=== PATIENT | female | born 1990 | race Two or more races ===

== ENCOUNTER 2018-07-29 09:32 | Emergency (ER) | payer BC, MEDICAID ==
[2018-07-29] MEDS ORDERED: TETRACAINE HCL 0.5% OPH SOLN 4 ML OD ONE (12:10)
[2018-07-29] MEDS ORDERED: BESIFLOXACIN HCL 0.6% OPH SUSP 5 ML BOTTLE OD ONE (12:58)
[2018-07-29] MEDS ORDERED: KETOROLAC TROMETHAMINE 0.45% 4 DROP/0.4 ML DROPERETTE OD ONE (12:58)
--- NOTE | 2018-07-29 13:03 | ER Document Report ---
ED General - General Chief Complaint: Eye Pain Stated Complaint: EYE PAIN Time Seen by Provider: 07/29/18 12:10 TRAVEL OUTSIDE OF THE [place] IN LAST 30 DAYS: No - HPI Patient complains to provider of: Right eye pain with drainage Notes: Patient coming in for evaluation of her eye pain and drainage. Patient states he does wear contacts and does sleep in her contacts patient states pain and drainage started 24 hours prior to arrival patient states this morning her eyes were matted together patient denies any fever chills nausea vomiting diarrhea denies any trauma to her eye. Patient is resting healthy upon my evaluation states photophobia and pain when looking up - Related Data Allergies/Adverse Reactions: No Known Allergies Allergy (Verified 07/29/18 09:34) Past Medical History - Social History Smoking Status: Never Smoker Chew tobacco use (# tins/day): No Frequency of alcohol use: None Drug Abuse: None Family History: Reviewed & Not Pertinent Patient has suicidal ideation: No Patient has homicidal ideation: No Renal/ Medical History: Denies: Hx Peritoneal Dialysis Psychiatric Medical History: Reports: Hx Attention Deficit Hyperactivity Disorder, Hx Depression - Immunizations Hx Diphtheria, Pertussis, Tetanus Vaccination: No Review of Systems - Review of Systems Constitutional: No symptoms reported EENT: Eye pain, Eye discharge Cardiovascular: No symptoms reported Respiratory: No symptoms reported Gastrointestinal: No symptoms reported Genitourinary: No symptoms reported Female Genitourinary: No symptoms reported Musculoskeletal: No symptoms reported Skin: No symptoms reported Hematologic/Lymphatic: No symptoms reported Neurological/Psychological: No symptoms reported -: Yes All other systems reviewed and negative Physical Exam - Vital signs Vitals: Temp Pulse Resp BP Pulse Ox 98.3 F 86 16 114/65 100 07/29/18 09:47 07/29/18 09:47 07/29/18 09:47 07/29/18 09:47 07/29/18 09:47 Interpretation: Normal - General General appearance: Appears well, Alert - HEENT Head: Normocephalic, Atraumatic Eyes: Normal Conjunctiva: Normal Cornea: No: Other - Forcing was instilled in the right eye after a drop of tetracaine there is no fluorescein pickup there was some swelling of the sclera above the pupil patient states the superior portion of the eyes where she has the foreign body sensation under regular light this area was examined the area of sclera was discolored brown to blue patient states that this is been in her eye most of her life 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 seen no corneal abrasion foreign body stye seen Pupils: PERRL - Respiratory Respiratory status: No respiratory distress Chest status: Nontender Breath sounds: Normal Chest palpation: Normal - Cardiovascular Rhythm: Regular Heart sounds: Normal auscultation Murmur: No - Abdominal Inspection: Normal Distension: No distension Bowel sounds: Normal Tenderness: Nontender Organomegaly: No organomegaly - Back Back: Normal, Nontender - Extremities General upper extremity: Normal inspection, Nontender, Normal color, Normal ROM , Normal temperature General lower extremity: Normal inspection, Nontender, Normal color, Normal ROM , Normal temperature, Normal weight bearing. No: Bob's sign - Neurological Neuro grossly intact: Yes Cognition: Normal Orientation: AAOx4 [place] Coma Scale Eye Opening: Spontaneous Vero Coma Scale Verbal: Oriented Vero Coma Scale Motor: Obeys Commands Vero Coma Scale Total: 15 Speech: Normal Motor strength normal: LUE, RUE, LLE, RLE Sensory: Normal - Psychological Associated symptoms: Normal affect, Normal mood - Skin Skin Temperature: Warm Skin Moisture: Dry Skin Color: Normal Course - Re-evaluation Re-evalutation: 07/29/18 20:40 I examination is more consistent with a conjunctivitis. Patient was given Kevlar drops and Besivance for coverage recommended no contact wearing for 1 week states an understanding was discharged home - Vital Signs Vital signs: Temp Pulse Resp BP Pulse Ox 98.3 F 80 13 120/70 100 07/29/18 13:52 07/29/18 13:52 07/29/18 13:52 07/29/18 13:52 07/29/18 13:52 Discharge - Discharge Clinical Impression: Conjunctivitis Qualifiers: Conjunctivitis type: acute Acute conjunctivitis type: unspecified Laterality: right Qualified Code(s): H10.31 - Unspecified acute conjunctivitis, right eye Condition: Good Disposition: HOME, SELF-CARE Instructions: Conjunctivitis, Allergic, Conjunctivitis ([facility]) Additional Instructions: Your evaluation today is consistent with conjunctivitis is may be allergic bacterial or viral in nature. Please do not wear contacts for the next 7-10 days. We will give you antibiotic drops for a bacterial cause of conjunctivitis called Besivance please place 1 drop into your right eye 3 times a day for the next 10 days. SHe may use this in your left eye if your left eye starts to have similar symptoms. You may use the ketorolac drops 1 drop in your right eye every 8 hours for pain control. You may also take Tylenol and Motrin for pain control. I would recommend 600 mg of Motrin along with 650 mg of Tylenol together. Return to ER symptoms worsen. Prescriptions: Ibuprofen [Motrin 600 mg Tablet] 600 mg PO Q8HP PRN #21 tablet PRN Reason: Forms: Return to Work
[2018-07-29 13:53] VITALS: BP 120/70
== END 2018-07-29 13:53 | disposition home or self-care (01) ==
LOC: ER 09:32
DX: H10.31 Unspecified acute conjunctivitis, right eye (principal)
CPT/HCPCS: 99283; J3490